=== PATIENT | female | born 1975 | race Caucasian/White ===

== ENCOUNTER 2019-01-25 17:08 | Emergency (ER) | payer BC ==
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
[2019-01-25 20:40] VITALS: BP 141/86
== END 2019-01-25 20:40 | disposition home or self-care (01) ==
LOC: ED 17:08
DX: R51 Headache (principal); Y04.2XXA Assault by strike against or bumped into by another person, initial encounter; Y92.9 Unspecified place or not applicable; Z88.1 Allergy status to other antibiotic agents; Z91.041 Radiographic dye allergy status
CPT/HCPCS: 99281

== ENCOUNTER 2019-07-13 19:37 | Emergency (ER) | payer BC ==
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
[2019-07-13 21:27] VITALS: BP 124/88
== END 2019-07-13 21:27 | disposition home or self-care (01) ==
LOC: ED 19:37
DX: S02.2XXA Fracture of nasal bones, initial encounter for closed fracture (principal); W20.8XXA Other cause of strike by thrown, projected or falling object, initial encounter; Y92.9 Unspecified place or not applicable
CPT/HCPCS: 70160; 99282

== ENCOUNTER 2019-07-22 11:02 | Day surgery (SDC) | payer BC ==
[~2019-07-22 11:02] MED LIST: Buffered Lidocaine 1% SYRIN* 1 ML/SYRINGE INTRADERM ONE; Lactated Ringers 1000 ML Bag* 1,000 ML IV SCH
[2019-07-22] MEDS ORDERED: Buffered Lidocaine 1% SYRIN* 1 ML/SYRINGE INTRADERM ONE (12:00)
[2019-07-22] MEDS ORDERED: Oxymetazoline 0.05% NASAL SPR* 15 ML BTL ONE (14:07)
[2019-07-22] MEDS ORDERED: Naloxone* 0.4 MG/ML 1 ML VIAL IV PRN (14:16)
[2019-07-22] MEDS ORDERED: Midazolam* 1 MG/ML 2 ML VIAL (2 MG) ONE (14:19)
[2019-07-22] MEDS ORDERED: Ketorolac INJ* 30 MG/ML 1 ML VIAL IV PUSH PRN (14:40)
[2019-07-22] MEDS ORDERED: Acetaminophen TAB* 325 MG PO PRN (14:40)
[2019-07-22] MEDS ORDERED: Ketorolac INJ* 30 MG/ML 1 ML VIAL ONE (14:41)
[2019-07-22] MEDS ORDERED: Acetaminophen TAB* 325 MG ONE (14:41)
[2019-07-22] MEDS: HYDROmorphone INJ1* 1 MG/ML SYRINGE IV PRN ×2 (14:58→15:10)
[2019-07-22] MEDS ORDERED: HYDROmorphone INJ1* 1 MG/ML SYRINGE ONE (14:58)
[2019-07-22 16:22] VITALS: BP 122/86
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
== END 2019-07-22 16:20 | disposition home or self-care (01) ==
LOC: OR 11:02
PROVIDERS: ATTEND Otolaryngology
DX: S02.2XXA Fracture of nasal bones, initial encounter for closed fracture (principal); Z88.1 Allergy status to other antibiotic agents; Z91.041 Radiographic dye allergy status; Z87.891 Personal history of nicotine dependence; X58.XXXA Exposure to other specified factors, initial encounter; Y92.9 Unspecified place or not applicable
CPT/HCPCS: A9270-GY; J1170; J1885; J2250